=== PATIENT | male | born 1980 | race Caucasian/White ===

== ENCOUNTER → 2017-12-16 | Outpatient (CLI) | payer BC ==
--- NOTE | 2017-12-16 17:51 | CT ---
EXAMINATION TYPE: CT abdomen pelvis wo con DATE OF EXAM: 12/16/2017 COMPARISON: None HISTORY: Left flank pain CT DLP: 429 mGycm Automated exposure control for dose reduction was used. TECHNIQUE: Helical acquisition of images was performed from the lung bases through the pelvis. FINDINGS: LUNG BASES: No significant abnormality is appreciated. LIVER/GB: No significant abnormality is appreciated. PANCREAS: No significant abnormality is seen. SPLEEN: No significant abnormality is seen. ADRENALS: No significant abnormality is seen. KIDNEYS, URETERS, BLADDER: There is moderate left-sided hydronephrosis down to the L3 pedicle level w here there is a 3 mm mid ureteral calcification. Remainder of the left kidney and left ureter are unr emarkable. No urinary bladder calcifications. The right ureter and right kidney are unremarkable. FREE AIR: No free air is visualized RETROPERITONEAL ADENOPATHY: None visualized REPRODUCTIVE ORGANS: No significant abnormality is seen PELVIC ADENOPATHY: None visualized. OSSEOUS STRUCTURES: No significant abnormality is seen. BOWEL: No significant abnormality is seen. IMPRESSION: MODERATE OBSTRUCTIVE UROPATHY ON THE LEFT SECONDARY TO 3 MM MID URETERAL CALCIFICATION.
== END | disposition home or self-care (01) ==
LOC: RADCTMAIN 16:20
PROVIDERS: ATTEND Physician Assistant
DX: N13.9 Obstructive and reflux uropathy, unspecified (principal); N28.89 Other specified disorders of kidney and ureter
CPT/HCPCS: 74176